=== PATIENT | male | born 1990 | race Caucasian/White ===

== ENCOUNTER 2018-12-17 05:28 | Day surgery (SDC) | payer SELFPAY ==
[2018-12-17] MEDS ORDERED: fentaNYL 100 MCG/2 ML SDV IV ONE ×4 (05:29→06:44)
[2018-12-17] MEDS ORDERED: Midazolam 1 MG/ML 2 ML SDV IV ONE ×7 (05:29→06:43)
[2018-12-17] MEDS ORDERED: Sodium Chloride 0.9% 10 ML Syringe FLUSH PRN (06:00)
[2018-12-17] MEDS ORDERED: Dextrose 5%-0.45% NaCl 1,000 ML IV SCH (06:00)
[2018-12-17] MEDS ORDERED: Midazolam 1 MG/ML 2 ML SDV ONE (06:17)
[2018-12-17] MEDS ORDERED: fentaNYL 100 MCG/2 ML SDV ONE (06:18)
--- NOTE | 2018-12-17 09:25 | OR ---
DATE: 12/17/2018 PROCEDURE: Total colonoscopy. INSTRUMENT USED: [id number] Olympus video colonoscope. PREMEDICATIONS: Fentanyl 150 mcg intravenous, Versed 4 mg intravenous, nasal O2 cannula. The procedure was done under pulse oximetry, BP recording, and cafeteria monitor. INDICATION: The patient with alternating constipation and diarrhea, as well as left-sided lower abdominal pain unexplained and not responsive to medical measures. Colonoscopic examination is done for detection of any polypoid lesions and removal, endoscopic hemostasis therapy if needed. DESCRIPTION OF PROCEDURE: Initial rectal exam was unremarkable. Rigid anoscopy was normal. The colonoscope was passed with ease up to the ileocecal area. Photographs were taken of the normal appearing cecum identified by landmarks of appendiceal orifice and double-bulged ileocecal folds. No bleeding was noted from any of the visualized areas at the commencement of the examination. The bowel preparation was found to be adequate, [place] scale 2 in all the regions. No stricture, no vascular ectasia. No large isolated ulcerations seen. No evidence of diffuse inflammatory bowel disease in the form of friability, contact bleeding, or ulcerations. No polyp or tumor mass identified. Probing the proximal sides of folds and flexures using adequate distention and clearing up the stool material, withdrawal of scope was made, cecum to rectum time over 6 minutes. No bleeding was noted from any of the visualized areas at the completion of examination. IMPRESSION: Normal study. The patient tolerated the procedure well. [facility] /[id number]
== END 2018-12-17 08:58 | disposition home or self-care (01) ==
LOC: DL.ENDO 05:28
PROVIDERS: ATTEND Internal Medicine Gastroenterology
DX: K59.00 Constipation, unspecified (principal); R19.7 Diarrhea, unspecified; R10.32 Left lower quadrant pain; E66.09 Other obesity due to excess calories; Z88.0 Allergy status to penicillin; Z87.891 Personal history of nicotine dependence
CPT/HCPCS: 45378; J2250; J3010; J7042; G0121

== ENCOUNTER 2024-05-19 20:12 | Emergency (ER) | payer SELFPAY ==
[2024-05-19] MEDS ORDERED: Sodium Chloride 0.9% 10 ML Syringe FLUSH PRN (20:44)
[2024-05-19] MEDS: Ketorolac 30 MG/ML SDV IVPUSH ONE (20:58)
[2024-05-19] MEDS: Dexamethasone 4 MG/ML SDV IVPUSH ONE (21:00)
[2024-05-19] MEDS: Oxymetazoline 0.05% Nasal Spray 30 ML Bottle NAS ONE (21:06)
== END 2024-05-19 21:06 | disposition home or self-care (01) ==
LOC: DL.ED 20:12
DX: J06.9 Acute upper respiratory infection, unspecified (principal); M10.9 Gout, unspecified; K04.7 Periapical abscess without sinus; E66.9 Obesity, unspecified; Z88.0 Allergy status to penicillin; Z88.8 Allergy status to other drugs, medicaments and biological substances; Z68.39 Body mass index [BMI] 39.0-39.9, adult
CPT/HCPCS: 96374; 96375; 99283; A9270; J1100; J1885